=== PATIENT | male | born 1950 | race African-American/Black ===

== ENCOUNTER 2017-05-21 17:18 | Emergency (ER) | payer MEDICARE, OTHER ==
[2017-05-21] MEDS: SILVER NITRATE STICK TP ×2 (17:39)
[2017-05-21] MEDS: TETRACAINE 0.5% OPHTH SOLUTION 4ML BOTTLE. OD ×2 (17:39)
== END 2017-05-21 18:07 | disposition home or self-care (01) ==
LOC: ER 17:18
DX: R04.0 Epistaxis (principal); F17.200 Nicotine dependence, unspecified, uncomplicated
CPT/HCPCS: 30901; 99284

== ENCOUNTER 2017-05-21 22:35 | Emergency (ER) | payer MEDICARE, OTHER ==
[2017-05-21] MEDS: PROMETH/CODEINE 6.25/10MG 5 ML SYRUP. PO ×2 (23:45)
== END 2017-05-22 00:15 | disposition home or self-care (01) ==
LOC: ER 05-22 00:15
DX: R04.0 Epistaxis (principal); R05 Cough; F17.200 Nicotine dependence, unspecified, uncomplicated
CPT/HCPCS: 99283

== ENCOUNTER 2017-05-22 04:06 | Emergency (ER) | payer MEDICARE, OTHER | END 2017-05-22 05:30 | disposition home or self-care (01) | LOC: ER 04:06 | DX: R04.0 Epistaxis (principal) | CPT/HCPCS: 30901; 99284-25 ==

== ENCOUNTER 2017-05-22 13:12 | Emergency (ER) | payer MEDICARE, OTHER ==
[2017-05-22] MEDS: OXYMETAZOLINE 0.05% NASAL SPRAY 30ML BOTTLE. NS ×2 (13:42)
[2017-05-22] MEDS: LIDOCAINE 2% JELLY 6ML IN APPLICATOR. MM (13:43)
== END 2017-05-22 14:39 | disposition home or self-care (01) ==
LOC: ER 13:12
DX: R04.0 Epistaxis (principal); Z79.82 Long term (current) use of aspirin
CPT/HCPCS: 30901; 99284-25

== ENCOUNTER → 2020-10-30 | Outpatient (CLI) | payer MEDICARE, OTHER ==
[2017-05-22 13:20] VITALS: BP 188/88
[~2020-10-30] MED LIST: AZIT250T6 PO; CODE10LI PO
--- NOTE | 2020-10-30 16:20 | RAD ---
Examination: Right Lower Extremity Venous Doppler Ultrasound History: Right lower extremity swelling Comparison: None Procedure: Chamberlain scale, color flow 2D and spectal waveform analysis images are obtained with and witho ut compression in the area of the common femoral vein, superficial femoral vein - femoral vein juncti on, main femoral vein (superficial femoral vein) and popliteal vein. Veins of the proximal calf are a lso imaged. Findings: There is normal duplex flow, color flow and compressibility of all visualized vein segments. No evide nce of deep venous thrombus is present. Impression: No evidence of DVT in the right lower extremity venous system. Electronically signed by: Adalberto Carrera MD (10/30/2020 4:18 PM) [id number]
== END ==
LOC: US 15:10
PROVIDERS: ATTEND Internal Medicine
DX: M79.89 Other specified soft tissue disorders (principal)
CPT/HCPCS: 93971